=== PATIENT | male | born 1940 | race Caucasian/White ===

== ENCOUNTER 2016-10-08 16:44 | Emergency (ER) | payer MEDICARE, OTHER ==
[~2016-10-08 16:44] MED LIST: ACCURETI1 PO; ACCURETIC1 TAB PO; ASAB PO; C5 PO; CIMETIDINE400 MG PO; COLCRYS0.6 MG PO; CORDARONE PO; COREG12 PO; COREG25 PO; COREG3 PO; ENDOCET1 TA1 PO; KLOR-CON M2020 MEQ PO; L20 PO; LIPITOR20 PO; MULTIPLE VIT PO; MVI PO; NEULASTA SC; NORCO1 TA1 PO; NORV5 PO; OXYCOD PO; PACERONE100 MG PO; PEPCID40 MG PO; PERCOCET 7.5/321 TAB PO; PERCOCET1 TA2 PO; PRILO PO; PRILOSEC40 MG PO; PROTONIX PO; TAGAMET 200 MG200 MG PO; V5 PO; VICODINTAB PO; XARELTO20 MG PO; ZOCOR40 PO
[2016-10-08 16:59] LABS: BASOPHILS 0.7 %; BASOPHILS ABSOLUTE 0.06 10/3/uL (0.0-0.16); EOSINOPHILS 5.5 %; EOSINOPHILS ABSOLUTE 0.47 10/3/uL (0.0-0.53); HEMOGLOBIN 8.1 g/dL (13.6-17.8); IMMATURE GRANULOCYTES 0.2 %; IMMATURE GRANULOCYTES ABSOLUTE 0.02 10/3/uL (0.0-0.11); LYMPHOCYTES 19.5 %; LYMPHOCYTES ABSOLUTE 1.67 10/3/uL (0.67-4.30); MEAN CORPUS HGB CONC 30.5 g/dL (32.0-36.0); MEAN CORPUSCULAR HEMOGLOB 25.2 pg (26.0-34.0); MEAN PLATELET VOLUME 9.1 fL (9.2-13.0); MONOCYTES 13.9 %; MONOCYTES ABSOLUTE 1.19 10/3/uL (0.21-1.20); NEUTROPHILS 60.2 %; NEUTROPHILS ABSOLUTE 5.15 10/3/uL (2.02-8.40); RED CELL COUNT 3.21 10/6/uL (4.7-6.1); WHITE BLOOD CELLS 8.6 10/3/uL (4.5-10.5)
[2016-10-08 17:00] LABS: HEMATOCRIT 26.6 % (40.0-51.0); MANUAL DIFF NO %; MEAN CORPUSCULAR VOLUME 82.9 fL (80-100); PLATELET COUNT 324 10/3/uL (150-400)
[2016-10-08 17:05] LABS: INTERNATIONAL NORMAL RATI 1.2 UNITS (-); PARTIAL THROMBO TIME 31.9 SEC (22.5-37.2); PROTIME (NOT ORD) 14.6 SEC (12.0-14.5)
[2016-10-08 17:13] LABS: CALCIUM, SERUM 8.9 MG/DL (8.5-10.4); CHLORIDE, SERUM 113 MMOL/L (96-112); CO2 (CARBON DIOXIDE) 22 MMOL/L (24-34); CREATININE 2.09 MG/DL (0.70-1.30); GFR AFRICAN AMERICAN 35 ML/MIN (>=60); GFR NON AFRICAN AMERICAN 30 ML/MIN (>=60); GLUCOSE, SERUM 99 MG/DL (60-99); SGOT(AST) 19 U/L (5-40); SGPT(ALT) 20 U/L (5-65); SODIUM, SERUM 144 MMOL/L (135-148); TOTAL BILIRUBIN 0.5 MG/DL (0-1.2)
[2016-10-08 17:14] LABS: A/G RATIO 1.2 (0.7-1.9); ALBUMIN 3.8 G/DL (3.5-5.0); ALKALINE PHOSPHATASE 128 U/L (45-117); BUN (BLOOD UREA NITROGEN) 24 MG/DL (6-23); GLOBULIN 3.3 G/DL (2.5-4.1); TOTAL PROTEIN 7.1 G/DL (6.0-8.5)
[2016-10-08] MEDS ORDERED: PRILO PO (19:03)
[2016-10-08] MEDS ORDERED: PERCOCET 7.5/321 TAB PO (19:04)
[2016-10-08] MEDS ORDERED: ACCU20 PO (19:05)
[2016-10-08 20:38] LABS: ASCORBIC ACID (UR NOT ORDER) NEG (NEG); BILIRUBIN, URINE NEGATIVE (NEG); ER URINALYSIS TAT 0 Hrs 13 Mins; KETONE, URINE NEGATIVE (NEG); LEUKOCYTE ESTERASE(NOT OR NEG (NEG); NITRITE (URINE) NEG (NEG); WBC (NOT ORDERED) (RFLEX) 1 (0-5)
== END 2016-10-08 20:52 | disposition admitted as inpatient to this hospital (09) ==
LOC: ER 16:44
PROVIDERS: Nurse Practitioner Family
DX: R53.1 Weakness (principal); D64.9 Anemia, unspecified; N18.9 Chronic kidney disease, unspecified; Z85.828 Personal history of other malignant neoplasm of skin; Z85.72 Personal history of non-Hodgkin lymphomas; Z91.013 Allergy to seafood; Z79.899 Other long term (current) drug therapy; I12.9 Hypertensive chronic kidney disease with stage 1 through stage 4 chronic kidney disease, or unspecified chronic kidney disease
CPT/HCPCS: 36415; 71020; 80053; 81001; 82270; 83880; 85025; 85610; 85730; 86850; 86900; 86901; 99285

== ENCOUNTER 2016-10-14 17:07 | Inpatient (IN) | payer MEDICARE, OTHER ==
--- NOTE | ~2016-10-14 | OP ---
Record Of Operation [facility] [address] [place]. [address] NAME: SIOMARA CARRASCO : 40 STATUS : ADM IN PAT#: [id number] AGE: 76 ADM/REG DATE : 10/15/16 MR#: [id number] REPORT SERV DATE: 10/16/16 DICTATED BY: ALTAGRACIA LIVE DATE: 10/16/16 REPORT STATUS : Draft TRANSCRIBED BY: MODL DATE: 10/16/16 DATE OF PROCEDURE: GI PROCEDURE NOTE ATTENDING PHYSICIAN: Dr. aVlverde. PROCEDURE: Esophagogastroduodenoscopy with placement of small bowel PillCam capsule in the duodenum. CONSENT: Informed consent was obtained from the patient. Risks and benefits of the procedure as well as possible complications of bleeding, infection, perforation, allergic reaction to the medicine, small bowel PillCam can become lodged requiring surgery for removal. The patient understands and agrees to proceed. SEDATION: Per Anesthesia. INDICATION FOR THE PROCEDURE: Heme-positive stool and anemia with recent EGD and colonoscopy with continued bleeding. PROCEDURE NOTE: The patient was laid in the left lateral decubitus position. After sedation was obtained, GIF endoscope was lubricated and inserted into the mouth, driven through the esophagus, stomach, and first and second portion of duodenum. On slow withdrawal, first and second portion duodenum were unremarkable. Pylorus and antrum were unremarkable within the body of the stomach. An endoscopically placed clip was noted. Retroflexion was performed in the fundus. No cardial masses noted. Scope was straightened and withdrawn to the GE junction. Small hiatal hernia was present. Lower, mid, and upper esophagus was unremarkable for bleeding site. Scope was withdrawn and then using a GIF endoscope the PillCam was placed into the duodenum and deployed. The scope was then withdrawn. The patient appears to have tolerated the procedure well. IMPRESSION: 1. Small hiatal hernia. 2. Endoscopically placed clip noted in the body of the stomach. 3. Status post small bowel PillCam deployment in the duodenum. RECOMMENDATION: 1. Monitor hemoglobin and hematocrit. 2. Transfuse if needed. 3. Follow up on PillCam results. TIFFANIE/VON Altagracia Adam Record Of Operation [facility] [address] [facility] [place] [address] NAME: SIOMARA CARRASCO : 40 STATUS : ADM IN PAT#: [id number] AGE: 76 ADM/REG DATE : 10/15/16 MR#: [id number] REPORT SERV DATE: 10/16/16 DICTATED BY: ALTAGRACIA LIVE DATE: 10/16/16 REPORT STATUS : Draft TRANSCRIBED BY: MODL DATE: 10/16/16 Yeni Live / [id number] CC: Yeni Calderon M.D.
--- NOTE | ~2016-10-14 | HP ---
History And Physical [place] [address] [facility] [place]. [address] NAME: SIOMARA CARRASCO : 40 STATUS : ADM Nasrin PAT#: [id number] AGE: 76 ADM/REG DATE : 10/14/16 MR#: [id number] REPORT SERV DATE: 10/15/16 DICTATED BY: ALTAGRACIA CALVERT DATE: 10/14/16 REPORT STATUS : Draft TRANSCRIBED BY: MODL DATE: 10/14/16 DATE OF ADMISSION: 10/14/2016 POINT OF ENTRY: [facility] Emergency Department. PRIMARY OCCUPATIONAL THERAPY CO DIRECTOR: Unknown at this time. CHIEF COMPLAINT: Weakness, shortness of breath, low blood counts. HISTORY OF PRESENT ILLNESS: Mr. Carrasco is a 76-year-old gentleman with a known history of peptic ulcer disease with multiple admissions for GI bleed including one in the fall of 2015 for hemorrhagic shock who presents to the emergency department today with multiple complaints including weakness, shortness of breath, primarily dyspnea on exertion, as well as low blood counts. The patient was admitted to the Hospitalist Service in middle of September for reports of hematochezia. At that time, he underwent colonoscopy as well as EGD, which showed some 12 medium-sized angiodysplastic lesions without evidence of bleeding that were status post fulguration by argon plasma. The patient states that for the past week or so he has felt progressively weaker with fatigue as well as shortness of breath, primarily with dyspnea on exertion. The patient also does endorse some lower extremity edema. He notes chronic dark colored stools but denies any melena, bright red blood per rectum, or hematemesis. The patient states that he has been off the aspirin that he was instructed to stop during his last admission and also has not engaged in any alcohol intake since his last admission. He continues to deny any NSAID use or any other blood thinner use. The patient also continues to report a very pruritic, primarily upper extremity rash of his chest, upper torso, and arms. However, he feels that this has been getting better with use of [id number] topical as well as oral medications. During last admission, it was felt that this was a bedbug infestation. However, patient adamantly denies ever seeing any bedbugs in his house. The patient was also referred to the emergency room today by his primary care physician for labs by his PCP that showed a hemoglobin level of 7.0. Initial evaluation in the emergency department notable for a hemoglobin of 7.1, his creatinine was 2.41. He does have a mild transaminitis, which appears to be new. Occult stool was positive. The patient was subsequently admitted to the Hospitalist Service for further evaluation and management. The patient denies any recent fevers, night sweats, chills, chest pain, palpitations, cough, sputum production, abdominal pain, nausea, vomiting, diarrhea, constipation, dysuria, melena, or hematochezia. History And Physical [address] [address] NAME: SIOMARA CARRASCO : 40 STATUS : ADM Nasrin PAT#: [id number] AGE: 76 ADM/REG DATE : 10/14/16 MR#: [id number] REPORT SERV DATE: 10/15/16 DICTATED BY: ALTAGRACIA CALVERT DATE: 10/14/16 REPORT STATUS : Draft TRANSCRIBED BY: MODBuck DATE: 10/14/16 REVIEW OF SYSTEMS: Comprehensive review of systems otherwise negative unless listed in history present illness. PREVIOUS MEDICAL HISTORY: 1. Diffuse large B-cell lymphoma. 2. Atrial fibrillation, not on anticoagulation. 3. History of peptic ulcer disease and gastroesophageal reflux disease with recent endoscopic evaluation showing angioectasias as well as angiodysplastic lesions of the colon. 4. A recent admission for hemorrhagic shock. 5. History of alcohol abuse. 6. Hypertension. 7. Hyperlipidemia. 8. Basal cell carcinoma. 9. Chronic kidney disease, stage 3, baseline creatinine of 1.7 to 1.9. 10.Chronic systolic congestive heart failure with ejection fraction of 50%. 11.Multivalvular disease with documented aortic insufficiency, tricuspid regurgitation, as well as mitral regurgitation. SURGICAL HISTORY: 1. Cholecystectomy. 2. Skin cancer removal. ALLERGIES: SHELLFISH. HOME MEDICATIONS: 1. Amiodarone 100 mg daily. 2. Norvasc 5 mg daily. 3. Carvedilol 1.625 mg b.i.d. 4. Cimetidine 400 mg b.i.d. 5. Valium 5 to 10 mg daily p.r.n. 6. Percocet 7.5/325 one tab b.i.d. p.r.n. 7. Protonix 40 mg daily. 8. Accupril 20 mg daily. 9. Simvastatin 40 mg at bedtime. SOCIAL HISTORY: He denies any tobacco, alcohol, or illicits. FAMILY MEDICAL HISTORY: Significant for coronary artery disease in his parents. LABS AND IMAGIN. White count is 6.2, hemoglobin 7.1 hematocrit 23.0, and platelet count is 230. INR 1.3. 2. Sodium is 143, potassium 4.3, chloride 111, carbon oxide 19, BUN 34, creatinine 2.41, glucose is 94, calcium is 8.4, protein 6.1, albumin 3.2, bilirubin is 0.5, ALT is 71, AST 97, alkaline phosphatase is 139. History And Physical [address] [address] NAME: SIOMARA CARRASCO : 40 STATUS : ADM Nasrin PAT#: [id number] AGE: 76 ADM/REG DATE : 10/14/16 MR#: [id number] REPORT SERV DATE: 10/15/16 DICTATED BY: ALTAGRACIA CALVERT DATE: 10/14/16 REPORT STATUS : Draft TRANSCRIBED BY: VON DATE: 10/14/16 3. Lipase is 145. 4. Occult stool is positive. 5. Urinalysis: Specific gravity of 1.018. No evidence of any infection. 6. Chest x-ray per my review shows some right lower lobe infiltrate versus atelectasis as well as some very mild pulmonary venous congestion. PHYSICAL EXAMINATION: VITAL SIGNS: Temperature is 98.1 degrees Fahrenheit, pulse is 74, respirations 16, and saturating 98% on room air. Blood pressure 131/57. GENERAL: The patient is awake, alert, in no acute distress. Resting comfortably in bed. He is a well-developed, well-nourished, elderly chronically ill-appearing male. HEENT: Atraumatic and normocephalic. Moist mucous membranes. Pupils are equal, round, reactive to light and accommodation. Extraocular eye movements are intact. No scleral icterus. NECK: No jugular venous distention. No carotid bruits. CARDIAC: Regular rate and rhythm. No murmurs, rubs, or gallops. Normal S1, S2. LUNGS: Clear to auscultation bilaterally except for some decreased breath sounds at bases but no wheezes, rhonchi, or crackles and no rales appreciated either. ABDOMEN: Soft, nontender, nondistended. Good bowel sounds. No rebound, guarding, or rigidity. Extremities: He has 2+ lower extremity edema. SKIN: The patient has diffuse pruritic erythematous rash that primarily starts in his mid trunk region and is worse so over his upper trunk and upper extremities as well as neck and face. I do not appreciate any obvious insect bites. There is no appreciable rash in his lower torso or lower extremities. PSYCH: Affect appropriate. NEURO: Alert and oriented x3. Cranial nerves 2 through 12 grossly intact. Speech is normal. Gait not assessed. ASSESSMENT: Mr. Carrasco is a 76-year-old gentleman, who presents feeling weak, short of breath, as well as noted to have low blood counts at outside facility. PROBLEM LIST: 1. Acute on chronic anemia. 2. Occult positive stools. 3. Transaminitis. 4. Acute kidney injury on chronic kidney stage 3. 5. Shortness of breath and dyspnea on exertion. 6. Weakness. 7. Chronic systolic congestive heart failure. 8. Pleuritic erythematous skin rash. PLAN: 1. Acute on chronic anemia with occult positive stools. We will admit patient to Hospitalist Service and initially place the patient on Protonix drip. We will check q.6 hours hemoglobin and hematocrits. Consult Gastroenterology for assistance as it was thought that the patient may need a pill endoscopy in the future if he continue to History And Physical [address] [address] NAME: SIOMARA CARRASCO : 40 STATUS : ADM Nasrin PAT#: [id number] AGE: 76 ADM/REG DATE : 10/14/16 MR#: [id number] REPORT SERV DATE: 10/15/16 DICTATED BY: ALTAGRACIA CALVERT DATE: 10/14/16 REPORT STATUS : Draft TRANSCRIBED BY: MODL DATE: 10/14/16 have evidence of ongoing bleeding. We will transfuse for hemoglobin of less than 7. 2. Transaminitis, unclear etiology at this time. We will hold his simvastatin as well as check a viral hepatitis panel and right upper quadrant ultrasound. Patient denies recent alcohol cessation. 3. Acute kidney injury on chronic kidney stage 3. Holding his quinapril. Provide some gentle IV fluid hydration. 4. Chronic systolic congestive heart failure. The patient does have some lower extremity edema. However, his lungs are clear. We will check a BNP level and limit fluids as much as possible. 5. Shortness of breath and weakness. I suspect this is multifactorial in etiology from the patient's acute kidney injury, his acute on chronic anemia, as well as possible contribution from a CHF. We will check an EKG, BNP, cardiac enzymes, thyroid function studies, as well as a repeat chest x-ray in the morning. 6. Pruritic skin rash. I highly doubt that this is a continuation of a bedbug infestation, now ongoing for four weeks. I will treat him supportively like I did last time with topical steroids and antihistamines. I suspect the patient will likely need some kind of dermatologic referral for further evaluation as the differential for a pruritic skin rash is extremely broad at this time. 7. DVT prophylaxis. ULISSES's and SCD's as he is actively bleeding. CODE STATUS: The patient wishes to be full code. JAYCOB/MODL Altagracia Calvert MD / [id number] CC: Yeni Barrios M.D.
--- NOTE | ~2016-10-14 | DS ---
Discharge Summary [facility] [address] [place]. [address] NAME: SIOMARA CARRASCO : 40 STATUS : ADM IN [facility]#: [id number] AGE: 76 ADM/REG DATE : 10/15/16 MR#: [id number] REPORT SERV DATE: 10/19/16 DICTATED BY: DATE: REPORT STATUS : Draft TRANSCRIBED BY: MODL DATE: 10/18/16 ADMISSION DATE: 10/15/2016 DISCHARGE DATE: Pending bed availability at [facility], where the patient has been transferred. DISCHARGE DIAGNOSES: 1. 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 Evidence of actively bleeding arteriovenous malfunctions on small bowel capsule endoscopy this admission. 2. Acute blood loss anemia status post two units of packed red blood cells - discharge hemoglobin value 10.0. Hemodynamically stable. 3. Iron deficiency - initiated on treatment with IV iron on October 17. 4. Acute kidney injury on chronic kidney disease, stage III-IV - resolving. Baseline creatinine 1.7-1.9. 5. Transaminitis at admission - resolved. Suspect secondary to hypotensive liver injury. Right upper quadrant ultrasound negative this admission. 6. History of congestive heart failure with ejection fraction 50% - compensated. 7. History of hypertension - hypotensive at admission, resolved. 8. History of atrial fibrillation or flutter - sinus bradycardia, this admission. No anticoagulation secondary to history of gastrointestinal bleed. 9. History of peripheral arterial disease. 10.History of diffuse large B-cell lymphoma in remission. 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 12.History of alcohol abuse - in remission, no alcohol for the past month. 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 No anticoagulation due to gastrointestinal bleeding history. 14.Rash consistent with bed bug infestation. The patient demonstrates no evidence of secondary bacterial infection. The patient has been decontaminated per our facilities protocol, but his belongings have not been retrieved by family member and thus, he remains on contact isolation, with clothing from home bagged in isolation. IMAGING AND DIAGNOSTICS: 1. Portable chest x-ray, October 14 for anemia and shortness of breath shows pulmonary vascular congestion, but no acute pulmonary edema. 2. Hepatic echo October 15 for right upper quadrant pain shows benign cyst of the left lobe of the liver. Otherwise negative hepatic ultrasound. Status post cholecystectomy with no biliary dilatation. Cortical thinning and increased cortical echotexture of the right kidney consistent with medical renal disease. 3. Portable chest x-ray October 15 for shortness of breath shows increased density in the right costophrenic angle consistent with developing pleural effusion or atelectasis. Cardiomegaly. 4. EGD October 16 with placement of small-bowel PillCam capsule in the duodenum. Performed by Dr. Jay Aranda. Evidence of small hiatal hernia. Endoscopically placed clips noted in the body of the stomach. Status post PillCam appointment. Discharge Summary [place] [id number] [facility] [place]. [address] NAME: SIOMARA CARRASCO : 40 STATUS : ADM IN [facility]#: [id number] AGE: 76 ADM/REG DATE : 10/15/16 MR#: [id number] REPORT SERV DATE: 10/19/16 DICTATED BY: DATE: REPORT STATUS : Draft TRANSCRIBED BY: MODL DATE: 10/18/16 5. Blood transfusions - 1 unit on October 15 and 1 unit on October 17. PERTINENT LABORATORY DATA: Admission hemoglobin 7.0, present hemoglobin 10.0. INR 1.3. Urinalysis negative. BNP 1569. Admission creatinine 2.4, now 1.9. Admission liver enzymes, AST 97, ALT 71, now normalized. Acetaminophen level negative. Serum iron 12, iron binding capacity 314, ferritin 13, TSH 5.5, free T4 1.45. BRIEF HISTORY: For full details, please see the previously dictated history of present illness by Dr. Jya Garcia. This is a 76-year-old white male with known history of peptic ulcer disease, duodenal AVMs, and multiple admissions in the past year for recurrent GI bleeding. The patient presented to the emergency department with weakness, shortness of breath, exertional dyspnea, and hemoglobin of 7.1. He endorsed melena, but no bright red blood per rectum or hematemesis. He was not taking any blood thinners including aspirin, which was discontinued during September hospitalization, and had not engaged in any alcohol intake since his September hospitalization. He denied any nonsteroidal anti-inflammatory use or any other blood thinners. The patient also continued to complain of a pruritic rash of the chest, upper torso, and arms. He was diagnosed with a bedbug infestation during the September hospitalization and reported improvement in his symptoms since that point in time. The patient was admitted for symptomatic anemia and positive guaiacs. HOSPITAL COURSE: The patient was admitted to a med/surg unit, placed on Protonix drip, and serial hemoglobin and hematocrit values were obtained. His hemoglobin declined to 7.0 on the morning of October 15 and he was transfused 1 unit of blood. He demonstrated appropriate rise. Gastroenterology was consulted and saw the patient on October 15, with recommendation for an upper endoscopy on October 16 with deployment of a small bowel PillCam. This occurred on the without any issue. Images were available on October 18 demonstrating multiple duodenal AVMs, some with active focal hemorrhage. Dr. Harris from Gastroenterology recommended that the patient be transferred to [facility] for definitive management of this with a double balloon enteroscopy, which is not performed at our facility. The patient was transfused an additional unit of red blood cells on October 17, when hemoglobin had gone from 9 back down to 7.8. His hemoglobin yoav to 10.0 following that unit of blood as well as initiation of IV iron. Other issues managed this admission included acute kidney injury on chronic kidney disease, stage II-III with baseline creatinine of 1.7-1.9. The patient's SYLVIE inhibitor was held at admission as were his diuretics. His creatinine down trended to baseline, and lisinopril will be re-initiated at 10 mg daily with hold parameters, as his blood pressure has been trending up over the past 24 hours. The patient also had evidence of a new transaminitis at admission with mild elevation of the ALT and AST. He had a hepatic echocardiogram which was negative. The liver enzyme abnormalities resolved spontaneously, and we were felt likely due to hypotensive injury preceding admission. Discharge Summary [place] [id number] [place]. [address] NAME: SIOMARA CARRASCO : 40 STATUS : ADM IN PAT#: [id number] AGE: 76 ADM/REG DATE : 10/15/16 MR#: [id number] REPORT SERV DATE: 10/19/16 DICTATED BY: DATE: REPORT STATUS : Draft TRANSCRIBED BY: MODL DATE: 10/18/16 The patient's multiple other chronic medical conditions as outlined above were stable during the course of this hospitalization. He does have a history of atrial fibrillation or flutter, but his demonstrated sinus bradycardia here, not on AV yfn blocking agents, with heart rates typically between 50 and 65. The patient also demonstrated some improvement in his rash from September, which clinically does appear to be consistent with bed bug infestation. He was placed on contact isolation and remains on contact isolation here simply because his belongings from home have not been retrieved by family yet. If his belongings can be taken back home, he will not require isolation any further. DISPOSITION: The patient will be discharged to [facility] and has been accepted by Dr. Cayden Whittington, pending availability of a med/surg bed. DISCHARGE MEDICATIONS: Include: 1. Amlodipine 5 mg p.o. daily. 2. Cordarone 100 mg p.o. daily. 3. Coreg 1.5/625 mg p.o. twice a day. 4. Protonix 40 mg IV every 12 hours. 5. Iron gluconate 125 mg IV daily - started on October 17. 6. Acetaminophen 650 mg p.o. or per rectum every four hours as needed for fever. 7. Valium 5-10 mg p.o. daily p.r.n. anxiety. 8. Benadryl 25 mg p.o. every six hours p.r.n. itching. 9. Hydrocodone one tablet p.o. every four hours as needed for pain. 10.Topical hydrocortisone applied to rash three times daily as needed. 11.Zofran 4 mg p.o. or sublingual every four hours as needed for nausea and 48 mg IV every four hours as needed for nausea. 12.Lisinopril 10 mg p.o. daily - hold if systolic blood pressure less than or equal to 110. 40 minutes were spent in arranging for transfer to [facility] and completion of the discharge summary. GELY/VON Todd Cisse M.D. / [id number] CC: Yeni Calderon M.D.
--- NOTE | ~2016-10-14 | CN ---
Consultation Report [facility] [address] [place]. [address] NAME: SIOMARA CARRASCO : 40 STATUS : ADM Nasrin PAT#: [id number] AGE: 76 ADM/REG DATE : 10/14/16 MR#: [id number] REPORT SERV DATE: 10/15/16 DICTATED BY: JESICA CARLIN DATE: 10/15/16 REPORT STATUS : Draft TRANSCRIBED BY: MODL DATE: 10/15/16 GI CONSULTATION DATE OF CONSULTATION: 10/15/2016 REASON FOR CONSULTATION: Evaluation and management of acute on chronic anemia, Hemoccult- positive stools. HISTORY OF PRESENT ILLNESS: Mr. Carrasco is a 76-year-old male patient, who is seen by Dr. Evans in the outpatient setting, presented to [facility] on the with a chief complaint of a low hemoglobin, found by his primary care physician. He was recently seen by us in September of this year. Initial consultation on 09/20/2016 for GI bleeding. During that hospitalization, he underwent an EGD, as well as a colonoscopy with Dr. Harris and EGD done on the showed an unremarkable exam other than evidence of two prior clips from previous endoscopy. He then underwent a colonoscopy on the 22 of September showing blood in the transverse colon, ascending colon, and cecum with lesser amount of greener stool in the distal colon. He had twelve nonbleeding colonic angiodysplastic lesions that were treated by fulguration. Otherwise, exam was normal with recommendations of consideration of PillCam if bleeding persists to look for additional AVMs. He was discharged on the 25 of September with a hemoglobin on discharge of 7.6. He has also a notable history of being admitted in March of 2016 for GI bleeding then. At that time, it was felt secondary to AVMs and there was some question of Dieulafoy's lesion. He states that over the last several days, he has been extremely short of breath on exertion. He states that he has chronically dark stools. He has seen no hematochezia. He denies abdominal pain, nausea, vomiting, dysphagia, or odynophagia. No constipation or diarrhea. No recent fever, chills, or chest pain. He endorses the shortness of breath on exertion. I have discussed with the patient, we will place him on a clear liquid diet, give him CoLyte bowel prep in anticipation for EGD with small-bowel capsule endoscopy on the with Dr. Milton. I discussed the risks, benefits, alternatives, and complications with him to include, but not limited to risk of bleeding, perforation, infection, reaction to medications, as well as cardiac and pulmonary side effects. He is agreeable to proceed. PAST MEDICAL HISTORY: Positive for recurrent GI bleeding secondary to AVMs, diffuse large B- cell lymphoma, atrial fibrillation. No anticoagulants on-board, GERD, peptic ulcer disease, hypertension, basal cell carcinoma, hyperlipidemia, history of alcohol abuse, states cessation now, chronic kidney disease, stage III, systolic CHF, EF of 50%, right upper extremity DVT related to PICC line. PAST SURGICAL HISTORY: Skin cancer removal and cholecystectomy. SOCIAL HISTORY: He lives independently, states he has not had any alcohol since last discharge. No tobacco or illicits. FAMILY HISTORY: Negative from a GI standpoint. Consultation Report [address] [place]. [address] NAME: SIOMARA CARRASCO : 40 STATUS : ADM Nasrin PAT#: [id number] AGE: 76 ADM/REG DATE : 10/14/16 MR#: [id number] REPORT SERV DATE: 10/15/16 DICTATED BY: JESICA CARLIN DATE: 10/15/16 REPORT STATUS : Draft TRANSCRIBED BY: VON DATE: 10/15/16 ALLERGIES: TO SHELLFISH. HOME MEDICATIONS: Pacerone, Norvasc, Coreg, cimetidine, Valium, Percocet, Protonix, Accupril, and Zocor. REVIEW OF SYSTEMS: A ten-point review of systems obtained. Pertinent positives addressed in the history of present illness. PHYSICAL EXAMINATION: VITAL SIGNS: Temperature is 97.9, pulse of 60, respirations 19, and blood pressure is 127/60. NEURO: Reveals an alert, male, resting in bed with no focal deficits. GENERAL: Cooperative, in no apparent distress. Awake, alert, and oriented x3. HEAD, EARS, EYES, NOSE, AND THROAT: Anicteric. Pupils equal, round, and reactive to light and accommodation. Normocephalic and atraumatic. NECK: No JVD. No palpable nodes. Supple. LUNGS: Diminished in the bases. Clear in the upper lobes. Normal respiratory effort exhibited. Equal expansion. CARDIOVASCULAR SYSTEM: Regular rate and rhythm. ABDOMEN: Soft and round, nondistended, nontender. Active bowel sounds. No organomegaly appreciated. No rebound or guarding elicited on exam. EXTREMITIES: No edema. Normal distal pulses. SKIN: Warm, dry, and intact, but he has a notable rash on his abdomen, neck, face, and arms. PERTINENT LABORATORY DATA: Sodium 143, potassium 4.2, BUN is 34, creatinine is 2.41. White blood cell count 6.2, hemoglobin 7.0. Of note, he has received one unit of packed red blood cells with a hemoglobin of 8.2. His platelet count is 230. INR of 1.3. BNP is 1569. He has a CO2 of 19, a total bilirubin of 0.52. Alkaline phosphatase is 139. His ALT is 71, AST 97, lipase 145. Iron is 12. Iron binding capacity 314. Ferritin 13. ASSESSMENT: 1. Acute on chronic anemia. 2. Hemoccult-positive stools with reported melena. 3. History of upper gastrointestinal bleed in March of 2016 secondary to arteriovenous malformations. 4. Congestive heart failure. 5. Shortness of breath secondary to anemia. 6. Elevated liver function tests. 7. History of B-cell lymphoma. PLAN: 1. Decrease him to clear liquid diet. N.p.o. after midnight. Consultation Report [address] [place]. [address] NAME: SIOMARA CARRASCO : 40 STATUS : ADM Nasrin PAT#: [id number] AGE: 76 ADM/REG DATE : 10/14/16 MR#: [id number] REPORT SERV DATE: 10/15/16 DICTATED BY: JESICA CARLIN DATE: 10/15/16 REPORT STATUS : Draft TRANSCRIBED BY: MODL DATE: 10/15/16 2. We will given lactulose for a cleanout. 3. In the morning, he will have EGD with small-bowel capsule exam by Dr. Milton. 4. We will monitor his LFTs, follow up his ultrasound, as well as hepatitis panel. 5. Morning labs, CBC, BMP, PT/INR. Other recommendations to follow endoscopy. RUI/VON Jesica DIDIER Zuniga / [id number] CC: Yeni Calderon M.D.
--- NOTE | ~2016-10-14 | DS ---
Discharge Summary [facility] [address] [place]. [address] NAME: SIOMARA CARRASCO : 40 STATUS : DIS IN PAT#: [id number] AGE: 76 ADM/REG DATE : 10/15/16 MR#: [id number] REPORT SERV DATE: 10/21/16 DICTATED BY: MAICO LEMOS DATE: 10/20/16 REPORT STATUS : Draft TRANSCRIBED BY: MODL DATE: 10/20/16 ADMISSION DATE: 10/15/2016 DISCHARGE DATE: 10/20/2016 FINAL DIAGNOSES: 1. Gastrointestinal bleed secondary to small bowel arteriovenous malformations. 2. Acute blood loss anemia, status post two units packed RBC. 3. Status post acute kidney injury on chronic kidney disease, III to IV. 4. Atrial fibrillation with bradycardia. 5. Peripheral arterial disease. 6. Bed-bug rash. 7. Status post transaminitis. 8. Alcohol use. 9. Chronic back pain. HOSPITAL COURSE: Please refer to the H and P done by Dr. Garcia, dated on 10/15/2016; the interim discharge summary done by Dr. Cisse done on 10/19/2016. Since I took care of this patient, the patient's H and H has been stable and on discharge, it is at 9.3 and 29.8. The patient was told that he could be discharged and follow up with [facility] as we got reports for several days now that they do not have any available bed. However, he refused to. He said that this is the third time that he has been having this bleeding and at one point, that he was in the intensive care unit with a hemorrhagic shock. We continued touching base with [facility] and finally today, I got to talk with Dr. Lanza, who gave me the option again that he could be seen as an outpatient on 11/02/2016. However, the patient refused and Dr. Lanza was kind enough to accept the patient, but with the caveats that he probably would not be getting any procedure until early next week. The patient would prefer this. He would feel much more comfortable being in the hospital as he had this GI bleeding that is needing transfusion and is undergoing IV iron every day as well. The patient will now be transferred to [facility] under the services of Dr. Lanza. He will be continuing his current medications of Norvasc 5 mg once a day, amiodarone 100 mg once a day, Coreg 1.625 mg twice a day, Protonix 40 mg IV q.12 hours, IV iron 125 mg a day. He has further management care of [facility]. This has been explained to the patient. He agreed and happy with this plan rather than an outpatient. TIME SPENT: One hour. KIRA/VON Maico Lemos M.D. / [id number] CC: Discharge Summary [address] [address] NAME: SIOMARA CARRASCO : 40 STATUS : DIS IN PAT#: [id number] AGE: 76 ADM/REG DATE : 10/15/16 MR#: [id number] REPORT SERV DATE: 10/21/16 DICTATED BY: MAICO LEMOS DATE: 10/20/16 REPORT STATUS : Draft TRANSCRIBED BY: VON DATE: 10/20/16 Yeni Richards M.D. [facility]
[~2016-10-14 17:07] MED LIST changes: +ACCU20 PO
[2016-10-14 19:53] LABS: BASOPHILS ABSOLUTE 0.06 10/3/uL (0.0-0.16); EOSINOPHILS 7.9 %; EOSINOPHILS ABSOLUTE 0.49 10/3/uL (0.0-0.53); HEMOGLOBIN 7.1 g/dL (13.6-17.8); IMMATURE GRANULOCYTES 0.2 %; IMMATURE GRANULOCYTES ABSOLUTE 0.01 10/3/uL (0.0-0.11); LYMPHOCYTES 24.8 %; LYMPHOCYTES ABSOLUTE 1.53 10/3/uL (0.67-4.30); MANUAL DIFF NO %; MEAN CORPUS HGB CONC 30.9 g/dL (32.0-36.0); MEAN CORPUSCULAR HEMOGLOB 24.9 pg (26.0-34.0); MEAN CORPUSCULAR VOLUME 80.7 fL (80-100); MEAN PLATELET VOLUME 8.5 fL (9.2-13.0); MONOCYTES 13.9 %; MONOCYTES ABSOLUTE 0.86 10/3/uL (0.21-1.20); NEUTROPHILS 52.2 %; NEUTROPHILS ABSOLUTE 3.22 10/3/uL (2.02-8.40); PLATELET COUNT 230 10/3/uL (150-400); RBC DISTRIBUTION WIDTH 16.1 % (12.0-16.0); RED CELL COUNT 2.85 10/6/uL (4.7-6.1); WHITE BLOOD CELLS 6.2 10/3/uL (4.5-10.5)
[2016-10-14 20:01] LABS: INTERNATIONAL NORMAL RATI 1.3 UNITS (-); PARTIAL THROMBO TIME 27.8 SEC (22.5-37.2); PROTIME (NOT ORD) 16.3 SEC (12.0-14.5)
[2016-10-14 20:07] LABS: A/G RATIO 1.1 (0.7-1.9); ALBUMIN 3.2 G/DL (3.5-5.0); ALKALINE PHOSPHATASE 139 U/L (45-117); CALCIUM, SERUM 8.4 MG/DL (8.5-10.4); CHLORIDE, SERUM 111 MMOL/L (96-112); CO2 (CARBON DIOXIDE) 19 MMOL/L (24-34); CREATININE 2.41 MG/DL (0.70-1.30); GFR AFRICAN AMERICAN 29 ML/MIN (>=60); GFR NON AFRICAN AMERICAN 25 ML/MIN (>=60); GLOBULIN 2.9 G/DL (2.5-4.1); GLUCOSE, SERUM 94 MG/DL (60-99); POTASSIUM, SERUM 4.2 MMOL/L (3.5-5.3); SGOT(AST) 97 U/L (5-40); SGPT(ALT) 71 U/L (5-65); SODIUM, SERUM 143 MMOL/L (135-148); TOTAL BILIRUBIN 0.5 MG/DL (0-1.2); TOTAL PROTEIN 6.1 G/DL (6.0-8.5)
[2016-10-14 20:08] LABS: BUN (BLOOD UREA NITROGEN) 34 MG/DL (6-23)
[2016-10-14 20:31] LABS: WBC (NOT ORDERED) (RFLEX) 0 (0-5)
[2016-10-14 20:46] LABS: ALCOHOL < 10 MG/DL (0); SALICYLATE < 1.7 MG/DL (-)
[2016-10-14 20:57] LABS: ASCORBIC ACID (UR NOT ORDER) NEG (NEG); BILIRUBIN, URINE NEGATIVE (NEG); ER URINALYSIS TAT 0 Hrs 27 Mins; KETONE, URINE NEGATIVE (NEG); LEUKOCYTE ESTERASE(NOT OR NEG (NEG); NITRITE (URINE) NEG (NEG)
[2016-10-14 21:03] LABS: DIRECT BILIRUBIN 0.2 MG/DL (0.0-0.4); INDIRECT BILIRUBIN(NOT ORDER) 0.3 MG/DL (0.1-0.9)
[2016-10-14] MEDS ORDERED: ACCU20 PO (21:07)
[2016-10-14] MEDS ORDERED: PERCOCET 7.5/321 TAB PO (21:09)
[2016-10-14] MEDS ORDERED: PROTONIX PO (21:10)
[2016-10-14] MEDS ORDERED: NORV5 PO (21:10)
[2016-10-14] MEDS ORDERED: COREG3 PO (21:11)
[2016-10-14] MEDS ORDERED: V5 PO (21:11)
[2016-10-14] MEDS ORDERED: CIMETIDINE400 MG PO (21:11)
[2016-10-14] MEDS ORDERED: PACERONE100 MG PO (21:12)
[2016-10-14] MEDS ORDERED: ZOCOR40 PO (21:12)
[2016-10-14 22:33] LABS: TROPONIN I 0.04 NG/ML (<0.05)
[2016-10-15 03:00] LABS: HEMATOCRIT 22.6 % (40.0-51.0)
[2016-10-15 03:23] LABS: FREE T4 1.45 NG/DL (0.76-1.46); ULTRASENSITIVE TSH 5.55 MCIU/ML (0.358-3.740)
[2016-10-15] MEDS ORDERED: NORCO1 TA1 PO (08:43)
[2016-10-15 09:38] LABS: HEMOGLOBIN 8.2 g/dL (13.6-17.8)
[2016-10-15 09:39] LABS: HEMATOCRIT 26.3 % (40.0-51.0)
[2016-10-15 15:59] LABS: HEMATOCRIT 28.3 % (40.0-51.0); HEMOGLOBIN 8.7 g/dL (13.6-17.8)
[2016-10-15 20:48] LABS: HEMATOCRIT 27.3 % (40.0-51.0); HEMOGLOBIN 8.5 g/dL (13.6-17.8)
[2016-10-16 02:53] LABS: INTERNATIONAL NORMAL RATI 1.3 UNITS (-); PROTIME (NOT ORD) 16.5 SEC (12.0-14.5)
[2016-10-16 03:03] LABS: ALBUMIN 2.8 G/DL (3.5-5.0); ALKALINE PHOSPHATASE 141 U/L (45-117); CHLORIDE, SERUM 117 MMOL/L (96-112); CO2 (CARBON DIOXIDE) 21 MMOL/L (24-34); CREATININE 2.25 MG/DL (0.70-1.30); GFR AFRICAN AMERICAN 32 ML/MIN (>=60); GFR NON AFRICAN AMERICAN 27 ML/MIN (>=60); GLOBULIN 2.8 G/DL (2.5-4.1); GLUCOSE, SERUM 92 MG/DL (60-99); POTASSIUM, SERUM 3.8 MMOL/L (3.5-5.3); SGOT(AST) 65 U/L (5-40); SGPT(ALT) 67 U/L (5-65); SODIUM, SERUM 149 MMOL/L (135-148); TOTAL BILIRUBIN 0.6 MG/DL (0-1.2); TOTAL PROTEIN 5.6 G/DL (6.0-8.5)
[2016-10-16 03:05] LABS: BUN (BLOOD UREA NITROGEN) 28 MG/DL (6-23)
[2016-10-16 03:12] LABS: BASOPHILS 0.6 %; BASOPHILS ABSOLUTE 0.04 10/3/uL (0.0-0.16); EOSINOPHILS ABSOLUTE 0.47 10/3/uL (0.0-0.53); HEMATOCRIT 25.3 % (40.0-51.0); HEMOGLOBIN 8.2 g/dL (13.6-17.8); IMMATURE GRANULOCYTES 0.1 %; IMMATURE GRANULOCYTES ABSOLUTE 0.01 10/3/uL (0.0-0.11); LYMPHOCYTES ABSOLUTE 1.08 10/3/uL (0.67-4.30); MANUAL DIFF NO %; MEAN CORPUS HGB CONC 32.4 g/dL (32.0-36.0); MEAN CORPUSCULAR VOLUME 80.3 fL (80-100); MEAN PLATELET VOLUME 9.5 fL (9.2-13.0); MONOCYTES 14.1 %; MONOCYTES ABSOLUTE 0.95 10/3/uL (0.21-1.20); NEUTROPHILS 62.2 %; PLATELET COUNT 205 10/3/uL (150-400); RBC DISTRIBUTION WIDTH 15.9 % (12.0-16.0); RED CELL COUNT 3.15 10/6/uL (4.7-6.1); WHITE BLOOD CELLS 6.8 10/3/uL (4.5-10.5)
[2016-10-16 13:06] LABS: HEMATOCRIT 26.9 % (40.0-51.0); HEMOGLOBIN 8.5 g/dL (13.6-17.8)
[2016-10-17 07:26] LABS: BASOPHILS 0.7 %; BASOPHILS ABSOLUTE 0.05 10/3/uL (0.0-0.16); EOSINOPHILS ABSOLUTE 0.87 10/3/uL (0.0-0.53); HEMATOCRIT 24.9 % (40.0-51.0); HEMOGLOBIN 7.8 g/dL (13.6-17.8); IMMATURE GRANULOCYTES 0.3 %; IMMATURE GRANULOCYTES ABSOLUTE 0.02 10/3/uL (0.0-0.11); LYMPHOCYTES 20.3 %; LYMPHOCYTES ABSOLUTE 1.36 10/3/uL (0.67-4.30); MEAN CORPUS HGB CONC 31.3 g/dL (32.0-36.0); MEAN CORPUSCULAR HEMOGLOB 25.7 pg (26.0-34.0); MEAN CORPUSCULAR VOLUME 82.2 fL (80-100); MONOCYTES 17.8 %; MONOCYTES ABSOLUTE 1.19 10/3/uL (0.21-1.20); NEUTROPHILS 47.9 %; NEUTROPHILS ABSOLUTE 3.21 10/3/uL (2.02-8.40); PLATELET COUNT 190 10/3/uL (150-400); RBC DISTRIBUTION WIDTH 16.4 % (12.0-16.0); RED CELL COUNT 3.03 10/6/uL (4.7-6.1); WHITE BLOOD CELLS 6.7 10/3/uL (4.5-10.5)
[2016-10-17 07:29] LABS: MANUAL DIFF NO %
[2016-10-17 07:38] LABS: A/G RATIO 1.1 (0.7-1.9); ALBUMIN 2.8 G/DL (3.5-5.0); CALCIUM, SERUM 8.1 MG/DL (8.5-10.4); CHLORIDE, SERUM 110 MMOL/L (96-112); CO2 (CARBON DIOXIDE) 21 MMOL/L (24-34); DIRECT BILIRUBIN 0.2 MG/DL (0.0-0.4); GFR AFRICAN AMERICAN 41 ML/MIN (>=60); GFR NON AFRICAN AMERICAN 36 ML/MIN (>=60); GLOBULIN 2.6 G/DL (2.5-4.1); GLUCOSE, SERUM 92 MG/DL (60-99); INDIRECT BILIRUBIN(NOT ORDER) 0.4 MG/DL (0.1-0.9); POTASSIUM, SERUM 3.7 MMOL/L (3.5-5.3); SGOT(AST) 36 U/L (5-40); SGPT(ALT) 47 U/L (5-65); SODIUM, SERUM 143 MMOL/L (135-148); TOTAL BILIRUBIN 0.6 MG/DL (0-1.2); TOTAL PROTEIN 5.4 G/DL (6.0-8.5)
[2016-10-17 07:39] LABS: ALKALINE PHOSPHATASE 120 U/L (45-117); BUN (BLOOD UREA NITROGEN) 20 MG/DL (6-23)
[2016-10-17 21:27] LABS: HEMOGLOBIN 9.1 g/dL (13.6-17.8)
[2016-10-17 21:31] LABS: HEMATOCRIT 29.1 % (40.0-51.0)
[2016-10-18 07:35] LABS: BASOPHILS 0.6 %; BASOPHILS ABSOLUTE 0.05 10/3/uL (0.0-0.16); EOSINOPHILS 14.6 %; EOSINOPHILS ABSOLUTE 1.14 10/3/uL (0.0-0.53); HEMOGLOBIN 10.1 g/dL (13.6-17.8); IMMATURE GRANULOCYTES 0.4 %; IMMATURE GRANULOCYTES ABSOLUTE 0.03 10/3/uL (0.0-0.11); LYMPHOCYTES 19.7 %; LYMPHOCYTES ABSOLUTE 1.54 10/3/uL (0.67-4.30); MEAN CORPUS HGB CONC 31.3 g/dL (32.0-36.0); MEAN CORPUSCULAR HEMOGLOB 26.2 pg (26.0-34.0); MEAN CORPUSCULAR VOLUME 83.7 fL (80-100); MEAN PLATELET VOLUME 9.9 fL (9.2-13.0); MONOCYTES 11.4 %; MONOCYTES ABSOLUTE 0.89 10/3/uL (0.21-1.20); NEUTROPHILS 53.3 %; NEUTROPHILS ABSOLUTE 4.16 10/3/uL (2.02-8.40); PLATELET COUNT 212 10/3/uL (150-400); RBC DISTRIBUTION WIDTH 16.2 % (12.0-16.0); WHITE BLOOD CELLS 7.8 10/3/uL (4.5-10.5)
[2016-10-18 07:40] LABS: HEMATOCRIT 32.3 % (40.0-51.0); RED CELL COUNT 3.86 10/6/uL (4.7-6.1)
[2016-10-18 07:41] LABS: MANUAL DIFF NO %
[2016-10-18 07:45] LABS: BUN (BLOOD UREA NITROGEN) 20 MG/DL (6-23); CALCIUM, SERUM 8.5 MG/DL (8.5-10.4); CHLORIDE, SERUM 107 MMOL/L (96-112); CO2 (CARBON DIOXIDE) 22 MMOL/L (24-34); CREATININE 1.94 MG/DL (0.70-1.30); GFR AFRICAN AMERICAN 38 ML/MIN (>=60); GFR NON AFRICAN AMERICAN 33 ML/MIN (>=60); GLUCOSE, SERUM 87 MG/DL (60-99); POTASSIUM, SERUM 3.9 MMOL/L (3.5-5.3); SODIUM, SERUM 140 MMOL/L (135-148)
[2016-10-18 16:49] LABS: HEMATOCRIT 30.5 % (40.0-51.0); HEMOGLOBIN 9.3 g/dL (13.6-17.8)
[2016-10-20 05:52] LABS: BASOPHILS 0.5 %; BASOPHILS ABSOLUTE 0.03 10/3/uL (0.0-0.16); EOSINOPHILS 15.9 %; EOSINOPHILS ABSOLUTE 0.92 10/3/uL (0.0-0.53); HEMATOCRIT 29.8 % (40.0-51.0); HEMOGLOBIN 9.3 g/dL (13.6-17.8); IMMATURE GRANULOCYTES 0.3 %; IMMATURE GRANULOCYTES ABSOLUTE 0.02 10/3/uL (0.0-0.11); LYMPHOCYTES 21.2 %; LYMPHOCYTES ABSOLUTE 1.23 10/3/uL (0.67-4.30); MEAN CORPUS HGB CONC 31.2 g/dL (32.0-36.0); MEAN CORPUSCULAR HEMOGLOB 26.1 pg (26.0-34.0); MEAN CORPUSCULAR VOLUME 83.5 fL (80-100); MEAN PLATELET VOLUME 9.4 fL (9.2-13.0); MONOCYTES 12.1 %; PLATELET COUNT 180 10/3/uL (150-400); RBC DISTRIBUTION WIDTH 16.5 % (12.0-16.0); RED CELL COUNT 3.57 10/6/uL (4.7-6.1); WHITE BLOOD CELLS 5.8 10/3/uL (4.5-10.5)
[2016-10-20 05:53] LABS: MANUAL DIFF NO %
[2016-10-20 06:10] LABS: BUN (BLOOD UREA NITROGEN) 17 MG/DL (6-23); CHLORIDE, SERUM 110 MMOL/L (96-112); CO2 (CARBON DIOXIDE) 22 MMOL/L (24-34); CREATININE 1.82 MG/DL (0.70-1.30); GFR AFRICAN AMERICAN 41 ML/MIN (>=60); GFR NON AFRICAN AMERICAN 35 ML/MIN (>=60); GLUCOSE, SERUM 88 MG/DL (60-99); POTASSIUM, SERUM 3.9 MMOL/L (3.5-5.3); SODIUM, SERUM 142 MMOL/L (135-148)
== END 2016-10-20 18:32 | disposition short-term general hospital (02) | DRG 378 ==
LOC: ER 17:07 → 5SO 22:23
PROVIDERS: Hospitalist; Internal Medicine; Internal Medicine Gastroenterology; Internal Medicine Pulmonary Disease; Nurse Practitioner; Nurse Practitioner Family; Physician Assistant
PROC: 30233N1 Transfusion of Nonautologous Red Blood Cells into Peripheral Vein, Percutaneous Approach (ICD-10-PCS; 2016-10-15)
PROC: 0DJ07ZZ Inspection of Upper Intestinal Tract, Via Natural or Artificial Opening (ICD-10-PCS; principal; 2016-10-16 08:30)
DX: K55.21 Angiodysplasia of colon with hemorrhage (principal); N17.9 Acute kidney failure, unspecified; N18.4 Chronic kidney disease, stage 4 (severe); I48.2 Chronic atrial fibrillation; I50.22 Chronic systolic (congestive) heart failure; I13.0 Hypertensive heart and chronic kidney disease with heart failure and stage 1 through stage 4 chronic kidney disease, or unspecified chronic kidney disease; D62 Acute posthemorrhagic anemia; R74.0 Nonspecific elevation of levels of transaminase and lactic acid dehydrogenase [LDH]; Z79.899 Other long term (current) drug therapy; Z91.013 Allergy to seafood; K44.9 Diaphragmatic hernia without obstruction or gangrene; F10.10 Alcohol abuse, uncomplicated; I73.9 Peripheral vascular disease, unspecified; G89.29 Other chronic pain; T14.8 Other injury of unspecified body region; L08.9 Local infection of the skin and subcutaneous tissue, unspecified; Z85.72 Personal history of non-Hodgkin lymphomas
CPT/HCPCS: 36415; 71010; 76705; 80048; 80053; 80307; 81001; 82248; 82570; 82728; 83540; 83550; 83690; 83735; 83880; 83935; 84300; 84439; 84443; 84484; 85014; 85018; 85025; 85610; 85730; 86850; 86900; 86901; 86920; 93005; 96365; 99285; A9270-GY; C9113; J1940; J2250; J2405; J2916; P9016